=== PATIENT | female | born 2005 | race Caucasian/White ===

== ENCOUNTER 2025-03-12 16:05 | Emergency (ER) | payer OTHER, SELFPAY ==
--- OUTSIDE RECORDS SUMMARY | 2025-03-12 16:08 | XMS_ITS | Encounter Summary ---
Author Organization [facility] Address [facility] [place] [address] Care Team Providers Care Eviction Specialist Name Role Phone Dede Cedeno POKER SUPERVISOR Primary Care Provider [phone] Encounter Details Date Type Department Care Team (Late st Contact Info) Description 01/10/2025 Results Follow-Up [facility] [address] [facility] [address] [place] [phone] Dede Cedeno, EDNA [address] [place], [place] [id number] XR ANKLE LT M3V Social History Tobacco Use Types Packs/Day Years Used Date Smoking Tobacco: Never Smokeless Tobacco: Never Alcohol Use Standard Drinks/Week Comments Yes 0 (1 standard drink = 0.6 oz pur e alcohol) occ PHQ-2 Answer Date Recorded Patient Health Questionnaire-2 Score 0 08/26/2024 Comments No Sex and Gender Information Value Date Recorded Sex Assigned at Female 08/26/2024 11:46 AM CDT Legal Sex Female 6:02 PM CDT Gender Identity Female 08/26/2024 11:46 AM CDT Sexual Orientation Not on file documented as of this encounter Plan of Treatment Upcoming Encounters Date Type Department Care Team (Late st Contact Info) Description 03/15/2025 2:00 PM EDITOR SCHOOL PHOTOGRAPH Office Visit [facility] [place] [address] [facility] [address] [place] [address] Dede Cedeno NP [address] [place] [address] documented as of this encounter Visit Diagnoses Diagnosis Closed avulsion fracture of lateral malleolus of left fibula, initial encounter- Primary documented in this encounter Additional Health Concerns Assessment Noted Time PHQ-9 Depression Total Score: 18 024 3:56 PM EDITOR SCHOOL PHOTOGRAPH documented as of this encounter Care Teams Eviction Specialist Relationship Specialty Start Date End Date Dede Cedeno NP [address] [place] [address] PCP - General NURSE PRACTITIONER 03/25/23 documented as of this encounter
--- OUTSIDE RECORDS SUMMARY | 2025-03-12 16:08 | XMS_ITS | Clinical Summary ---
Author Organization [facility] Address [address] [place] [address] Care Team Providers Care Nuclear Reactor Operator Name Role Phone Dede Cedeno NP Primary Care Provider [phone] Allergies No known active allergies Medications Etonogestrel (NEXPLANON SC) Activ e WALKING BOOT, DME,Indications :Closed avulsion fracture of lateral malleolus of left fibula, initial encounter Apply 1 Device topically daily. Wear boot daily for 6 to 8 weeks 1 Device 5 Active FLUoxetine (PROZAC) 10 MG tabletIndicatio ns:Anxiety and depression Take 1 tablet (10 mg total) by mouth daily. 90 tablet 5 Active Active Problems Problem Noted Date Diagnosed Date Acute left ankle pain 01/10/2025 Severe anxiety 06/19/2022 Severe depression 06/19/2022 Active autistic disorder 12/24/2019 Uncomplicated asthma 12/24/2019 Hay fever 11/09/2009 Bronchial asthma 11/09/2009 Encounters Date Type Department Care Team Description 03/10/2025 MyChart Message Enc [facility] [address] [place], [place] [phone] [facility] Provider Appointment request 01/31/2025 MyChart Message Enc [facility] [address] [place] [address] Dede Cedeno NP Medicine 01/17/2025 10:00 AM CDT Office Visit [facility] [address] [address] Ofelia Bah, Ankle/foot Pain (Pt is here today for 1 week f/u for lt ankle pain. Still some pain with activity. Still driving with boot on.) 01/17/2025 Travel 01/11/[address] [place] [address] Dede Cedeno NP DME Orders (SCAN) 01/10/2025 12:38 PM CDT - 01/10/2025 11:59 PM CDT Hospital Encounter [facility] [id number] [place] [address] Dede Cedeno NP Discharge Disposition: Home or Self Care (Routine Discharge) 01/10/2025 11:20 AM CDT Office Visit [address] [place] [address] Dede Cedeno NP Ankle Pain (Patient presents with c/o left foot pain after fall yesterday) 01/10/2025 Scan [facility] Scanned, [facility] 01/10/2025 Results Follow-Up [address] [place] [address] Dede Cedeno NP XR ANKLE LT M3V 01/10/2025 Travel from Last 3 Months Immunizations Immunization Administration Dates Next Due IJdV-VyvM-HDB (Pediarix) 11/17/2006,2005,0 2005 Dtap (Acel-Immune) 10/15/2010,2005 HPV GARDASIL 9-VALENT 01/15/2023,01/04/2020 Hepatitis A (Havrix [address]) 01/15/2023,09/01/2 020 Hib (Generic) 11/17/2006,2005,2005 ,2005 Influenza (Generic) 03/23/2009,04/21/2007 MMR (MMRII) 10/15/2010,11/17/2006 Meningococcal (MenQuadfi) 01/15/2023 Meningococcal (Menactra) 12/30/2016 Pneumococcal (Prevnar 7) 11/17/2006,2005,0 2005 Polio IPV (Ipol) 10/15/2010,2005 Tdap (Generic) 12/30/2016 Varicella (Varivax) 01/16/2017,11/17/2006 Family History Medical History Relation Comments Diabetes Mother Relation Status Comments Father Alive Mother Alive Social History Tobacco Use Types Packs/Day Years Used Date Smoking Tobacco: Never Smokeless Tobacco: Never Tobacco Cessation:Counseling Given: Yes Alcohol Use Standard Drinks/Week Comments Not Currently 0 (1 standard drink = 0.6 oz pur e alcohol) occ PHQ-2 Answer Date Recorded Patient Health Questionnaire-2 Score 0 08/26/2024 Comments No Sex and Gender Information Value Date Recorded Sex Assigned at Female 08/26/2024 11:46 AM CDT Legal Sex Female 6:02 PM CDT Gender Identity Female 08/26/2024 11:46 AM CDT Sexual Orientation Not on file Last Filed Vital Signs Vital Sign Reading Time Taken Comments Blood Pressure 102/62 01/17/2025 10:14 AM CDT Pulse 95 01/17/2025 10:14 AM CDT Temperature 36.7 C (98.1 F) 01/17/2025 10:14 AM CDT Respiratory Rate 16 01/17/2025 10:1 4 AM CDT Oxygen Saturation 100% 01/17/2025 10: 14 AM CDT Inhaled Oxygen Concentration - - Weight 68.4 kg (150 lb 12.8 oz) 025 11:16 AM CDT Height 185.4 cm (6' 1) 01/17/2025 10:1 4 AM CDT Body Mass Index 19.9 01/10/2025 11:16 AM CDT Plan of Treatment Upcoming Encounters Date Type Department Care Team (Late st Contact Info) Description 03/15/2025 2:00 PM MDS NURSE Office Visit [facility] [place] [address] [facility] [address] [place] [address] Dede Cedeno, CHILD DEVELOPMENT ASSISTANT [address] [place] [address] Health Maintenance Due Date Last Done Comments Chlamydia Screening Females ages 16-24 2021 Meningococcal B Vaccine (1 of 2 - Standard) 2021 Pneumococcal Vaccine: Pediatrics (0 to 5 Years) and At-Risk Patients (6 to 49 Years) (1 of 2 - PCV) 2024 11/17/2006, 2005, 2005 Annual Physical 05/27/2024 05/27/2023 COVID-19 Vaccine (2 - 2024- season) 2025 05/09/2021 Influenza Adult (#1) 2025 03/23/2009, 04/21/20 07 DTaP, Tdap and Td Vaccines (7 - Td or Tdap) 12/30/2026 12/30/2016, 10/15/2010, 11/17/2006, Additional history exists Hepatitis B Vaccines Completed 11/17/2006, 2005, 2005 HPV Vaccines Completed 01/15/2023, 01/04/2020 Hepatitis A Vaccines Completed 01/15/2023, 01/04/20 20 Meningococcal Vaccine Completed 01/15/2023, 017 Hepatitis C Completed 08/29/2023 PHQ-2 (Physician [place]) Completed 08/26/2024 RSV Immunizations Under 20 Months Aged Out No longer eligible based on patient's age to complete this topic Procedures Procedure Name Priority Date/Time Associated Diagnosis Comments XR ANKLE LT M3V [place] 01/10/2025 1:07 PM CDT Acute left ankle pain HEPATITIS C ANTIBODY Routine 08/29/2023 12:04 PM CDT Need for hepatitis C screening test from Last 3 Months or Most Recently Relevant to Health Maintenance Results * XR ANKLE LT M3V (01/10/2025 1:07 PM CDT) Anatomical Region Laterality Modality Ankle Radiographic Mercedes ging 01/10/2025 1:45 PM CDT Impressions 01/10/2025 1:45 PM CDT IMPRESSION: Small avulsion fracture at the distal tip of the lateral malleolus. Associated soft tissue swelling. Referred By: Interpreted By: Jez Pike MD, 01/10/2025 1:45 PM Narrative 01/10/2025 1:45 PM CDT [facility] [address] [place] [address] EXAMINATION: Left ankle EXAM DATE: 01/10/2025 12:57 PM REASON FOR EXAM: left ankle pain, swelling, left ankle injury Ankle pain and swelling COMPARISON: 12/08/2017 TECHNIQUE: 3 views FINDINGS: Small avulsion fracture at the distal tip of the lateral malleolus. Associated soft tissue swelling. No osteochondral lesion of the talus. Procedure Note Jez Pike MD - 01/10/2025 [facility] [address] [address] EXAMINATION: Left ankle EXAM DATE: 01/10/2025 12:57 PM REASON FOR EXAM: left ankle pain, swelling, left ankle injury Ankle pain and swelling COMPARISON: 12/08/2017 TECHNIQUE: 3 views FINDINGS: Small avulsion fracture at the distal tip of the lateral malleolus.Associated soft tissue swelling. No osteochondral lesion of the talus. IMPRESSION: Small avulsion fracture at the distal tip of the lateral malleolus.Associated soft tissue swelling. Referred By: Interpreted By: Jez Pike MD, 01/10/2025 1:45 PM us Dede Cedeno NP GENERAL IMAGING Final Res ult * HEPATITIS C ANTIBODY (08/29/2023 12:04 PM CDT) HEPATITIS C AB NON-REACTI VE NON-REACTI VE 08/29/2023 3:20 PM CDT [facility] 08/29/2023 12:0 4 PM CDT Dede Cedeno CHILD DEVELOPMENT ASSISTANT LABORATORY Final Res ult [facility] [address] [place] [address], from Last 3 Months or Most Recently Relevant to Health Maintenance Insurance [employer] Care Teams Nuclear Reactor Operator Relationship Specialty Start Date End Date Dede Cedeno NP [address] [facility] [address] [place] [address] PCP - General NURSE PRACTITIONER 03/25/23
--- OUTSIDE RECORDS SUMMARY | 2025-03-12 16:08 | XMS_ITS | Encounter Summary ---
Author Organization [facility] Address [facility] [place] [address] Care Team Providers Care Technical Agronomist Name Role Phone Dede Cedeno NP Primary Care Provider [phone] Encounter Details Date Type Department Care Team (Late Contact Info) Description 03/10/2025 908 Devices Message Enc [facility] [address] [facility] [address] [place], [place] [phone] [facility] Provider Appointment request Social History Tobacco Use Types Packs/Day Years Used Date Smoking Tobacco: Never Smokeless Tobacco: Never Alcohol Use Standard Drinks/Week Comments Not Currently [...] Encounters Date Type Department Care Team (Late Contact Info) Description 03/15/2025 2:00 PM GROMMET MAN Office Visit [facility] [address] [facility] [address] [place], [place] [phone] Dede Cedeno NP [address] [place] [address] documented as of this encounter Visit Diagnoses Not on filedocumented in this encounter Additional Health Concerns Assessment Noted Time PHQ-9 Depression Total Score: 18 024 3:56 PM GROMMET MAN documented as of this encounter Care Teams Technical Agronomist Relationship Specialty Start Date End Date Dede Cedeno NP [address] [place] [address] PCP - General NURSE PRACTITIONER 03/25/23 documented as of this encounter
--- OUTSIDE RECORDS SUMMARY | 2025-03-12 16:08 | XMS_ITS | Data Portability ---
Author Organization [id number] [facility] Address [address] [place] [address] Assessment No assessment recorded. Plan of Treatment Reminders Order Date Submit Date Provider Last Modified By Organization Details Last Modified Time Details Appointments ANNUAL - EST 15 026 01:15PM REGGIE CERRATONP Not available Not available Not available Lab None record ed. Referral None record ed. Procedures None record ed. Surgeries None record ed. Imaging None record ed. Medication Orders None record ed. Patient TargetsNo targets recorded. Patient Instructions Encounter Date Encounter Id Patient Instructions Last Modified By Organization Details Last Modified Time 11/29/2024 [id number] - Continue using Nexplanon as prescribed. - Schedule the next annual wellness visit in one year. [email or web address] Not available 11/29/2024 13:57:09 During the visit , we discussed the patient's use of Nexplanon and the associated irregular menstruation. I reassured her that this is a common side effect and does not require intervention unless it becomes bothersome. We also confirmed that no new health concerns were present, and I advised her to continue with routine annual wellness visits. The patient is advised to return for her next annual wellness visit in one year unless new symptoms or concerns arise. [email or web address] Not available 11/29/2024 13:57:09 Reason for Referral None Reported. Problems Name Problem SNOMED Code Status Onset Date Resolution Date Notes Provider Name and Address Organization Details Recorded Time History taking Active Other, aspergers Not Available [facility] 13:10:17 Problem Notes None recorded. Procedures Surgical History Date Name Laterality Status Provider Name and Address Organization Details Recorded Time Insert contraceptive cap completed Not Available [facility] 16:34:43 Imaging Results None recorded. Procedure Notes None recorded. Medical Equipment None Reported. Allergies No known drug allergies Medications Name Sig Start Date Stop Date Status Note LastModified by Organization Details LastModified Time azithromyci n 250 mg tablet TAKE 2 TABLETS BY MOUTH TODAY, THEN TAKE 1 TABLET DAILY FOR 4 DAYS DIRECTED 11/24 completed Not Available Not Available Not Available amoxicillin 875 mg-potassiu m clavulanate 125 mg tablet TAKE 1 TABLET BY MOUTH TWICE A DAY FOR 10 DAYS 11/24 completed Not Available Not Available Not Available levalbutero l HFA 45 mcg/actuati on aerosol inhaler INHALE 1 PUFF INTO THE LUNGS EVERY 4 HOURS NEEDED FOR WHEEZING OR SHORTNESS OF BREATH. 11/29 completed Not Available Not Available Not Available Nexplanon 68 mg subdermal implant Inject by subcutane ous route. 2023 active Not Available Not Available Not Avai lable Vitals Date Recorded Body height Body mass index (BMI) Body mass index (BMI) [Percentile] Per age and sex Body weight Systolic And Diastolic Provider Name and Address Organization Details Last Updated DateTime 11/29/2024 187.325 cm 19.1 kg/m2 17 % 51560.6 7 g 104/58 mm[Hg] Maycol Lorenzana [facility] 13:46:02 Social History Question Answer Notes LastModified by Sodraft Details LastModified Time Tobacco Smoking Status Never Smoker Screenin01/30/2021 Not Available [facility] 09/02/2024 17:39:33 Do You Have An Advance Directive? No Information not available 11/29/2024 If You Are , What Was Your Level Of Alcohol Consumption Prior To ? None Information not available 11/29/2024 What Is Your Level Of Caffeine Consumption? Occasional Information not available 11/29/2024 What Type Of Diet Are You Following? REGULAR Information not available 11/29/2024 What Is Your Relationship Status? Other Note: Single Information not available 09/02/2024 Sex: Female Functional Status Question Answer Note LastModified by Sodraft Details LastModified Time Do you use any illicit or recreational drugs? No Information not available 09/02/2024 What is your level of alcohol consumption? None Note: Use status used: Never Information not available 09/02/2024 Are you currently employed? Yes Information not available 11/29/2024 What is your exercise level? None Note: - [employer]rees[employer] 01/30/2021 Information not available 09/02/2024 Mental Status None recorded. Family History Relationship Description Onset Age of this Age Resolved Age Notes LastModified by Organization Details LastModified Time Brother Asthma Asthma Not available 09/02/2024 18:24:01 Mother Asthma Asthma [email or web address] Not available 0 09/02/2024 18:24:01 Mother Depressive disorder Depres karina Not available 09/02/2024 18:24:01 Father Depressive disorder Depres karina Not available 09/02/2024 18:24:01 Medical History Condition Response Cancer- Genetic screening Gynecological History Statement/Question Response History of PCOS N History of Fibroids N Date of LMP 11/09/2024 History of Infertility N History of Cervical Dysplasia N History of Vulvar Dysplasia N Duration of Flow (days) 0 Age at Menarche 14 Current Control Method History of Recurrent Ovarian Cysts N Age at first intercourse 14 History of Endometriosis N Sexually Active? Y History of Dysmenorrhea N Menses Monthly N Sexual Problems? N History of Sexually Transmitted Infectio n N Obstetrics History GPAL:G 0 P 0 0 0 0 Type Value Multiple Births 0 Full Term 0 Induced 0 Spontaneous 0 Premature 0 Living 0 Ectopics 0 Total 0 Immunizations Vaccine Type Date Status Note Provider Nam e and Address Organization Details Recorded Time Hib, unspecified formulation 6 completed Not Available [facility] 11/29/2024 13:37:25 IPV 6 completed Not Available [facility] 11/29/2024 13:37:25 DTaP 6 completed Not Available [facility] 11/29/2024 13:37:25 Hib, unspecified formulation 6 completed Not Available [facility] 11/29/2024 13:37:25 DTaP-Hep B-IPV 6 completed [facility] 11/29/2024 13:37:25 pneumococcal conjugate PCV 7 6 completed Not Available [facility] 11/29/2024 13:37:25 DTaP-Hep B-IPV 6 completed Not Available [facility] 11/29/2024 13:37:25 Hib, unspecified formulation 6 completed Not Available [facility] 11/29/2024 13:37:25 pneumococcal conjugate PCV 7 6 completed Not Available [facility] 11/29/2024 13:37:25 DTaP-Hep B-IPV 7 completed Not Available [facility] 11/29/2024 13:37:25 Hib, unspecified formulation 7 completed Not Available [facility] 11/29/2024 13:37:25 varicella 7 completed Not Available [facility] 11/29/2024 13:37:25 pneumococcal conjugate PCV 7 7 completed Not Available [facility] 11/29/2024 13:37:25 MMR 7 completed Not Available [facility] 11/29/2024 13:37:25 influenza, unspecified formulation 7 completed Not Available [facility] 11/29/2024 13:37:25 influenza, split (incl. purified surface antigen) 9 completed Not Available [facility] 11/29/2024 13:37:25 IPV 1 completed Not Available [facility] 11/29/2024 13:37:25 DTaP 1 completed Not Available [facility] 11/29/2024 13:37:25 MMR 1 completed Not Available [facility] 11/29/2024 13:37:25 meningococcal MCV4P 7 completed Not Available [facility] 11/29/2024 13:37:25 Tdap 7 completed Not Available [facility] 11/29/2024 13:37:25 varicella 7 completed Not Available [facility] 11/29/2024 13:37:25 Hep A, ped/adol, 2 dose 0 completed Not Available [facility] 11/29/2024 13:37:25 HPV9 0 completed Not Available [facility] 11/29/2024 13:37:25 COVID-19, mRNA, LNP-S, PF, 30 mcg/0.3 mL dose 2 completed Not Available [facility] 11/29/2024 13:37:25 Hep A, ped/adol, 2 dose 3 completed Not Available [facility] 11/29/2024 13:37:25 meningococcal conjugate quadrivalent, MenACWY-TT (MCV4) 3 completed Not Available [facility] 11/29/2024 13:37:25 HPV9 3 completed Not Available [facility] 11/29/2024 13:37:25 Past Encounters Encounter ID Performer Location Encounter Start Date Encounter Closed Date Diagnosis/Indication Diagnosis SNOMED-CT Code Diagnosis ICD10 Code Diagnosis IMO Codes Diagnosis Note [id number], [place] [id number] [facility] [address] [facility] [place] [address] 11/29/2024 13:10:39 11/29/2024 13:58:38 Well woman health examination 216778237 Z01.419 [id number] Subcutaneo us contraceptive implant present 420853756 Z97.5 [id number] Health Concerns Section Related Observation LastModified by Organization Detai ls LastModified Time None Recorded Concern Status LastModified by Organization Details LastModified Time None Recorded Advance Directives Directive N: Payers Insurance Date Sequence Insurance Name Policy Number Policy Zarco Covered Member ID Zarco Member ID Guarantor Name 11/27/2024 1 [facility] Howie Del Angel [id number] Howie Del Angel Notes Date Note Type Note Provider Name and Address Organization Details Recorded Time 11/29/2024 text/html doing okay no concerns mw- The patient is a 19-year-old female presenting with an annual wellness examination. - The patient has been using Nexplanon for contraception, which was changed last year. - She reports irregular menstruation, with periods that come and go without a regular pattern. - No gynecologic problems such as abnormal discharge, irritation, or pain during intercourse were reported. - The patient does not perform breast self-examinations and has not noticed any abnormalities. MEDICATIONS: - Nexplanon for contraception REGGIE BRAND [address] [facility] [address], [place], [address], [place] - [facility] 11/29/2024 14:06:57 OBGyn Episode No OBEpisode recorded.
--- OUTSIDE RECORDS SUMMARY | 2025-03-12 16:08 | XMS_ITS | Clinical Summary ---
Author Organization [facility] Address [address] [place] [address] Care Team Providers Care Grain Buyer Name Role Phone Denise Boogie MD Primary Care Provider Source Comments [facility],non-owned Affiliates and Associated Physician Practices is amultiple site organization consisting of ambulatory clinics and hospital sitesin [place], [place], [place]. This disclosure is being madepursuant to the Care Everywhere program and may not contain all information available regarding this patient. Last updated 18.[facility] [email or web address] Allergies No known active allergies Medications * Be aware that medications may not be up to date on this document. Alwaysverify current medications with the patient. mupirocin (BACTROBAN) 2 % ointment Apply 1 squirt to affected area 2 times daily 1 12/20/2017 Active Active Problems No known active problems Social History Tobacco Use Types Packs/Day Years Used Date Smoking Tobacco: Never Assessed Comments Unknown Sex and Gender Information Value Date Recorded Sex Assigned at Not on file Legal Sex Female 6:53 AM HOSPICE CLINICAL SUPERVISOR Gender Identity Not on file Sexual Orientation Not on file Last Filed Vital Signs Vital Sign Reading Time Taken Comments Blood Pressure 106/58 12/26/2011 11:27 PM CDT Pulse 108 12/26/2011 11:27 PM CDT Temperature 36 C (96.8 F) 12/26/2011 11:27 PM CDT Respiratory Rate 24 12/27/2011 1:54 AM CDT Oxygen Saturation - - Inhaled Oxygen Concentration - - Weight 56.8 kg (125 lb 3.5 oz) 04/23/2018 3:36 P M HOSPICE CLINICAL SUPERVISOR Height 175.5 cm (5' 9.09) 04/23/2018 3:36 PM CS T Body Mass Index 18.44 04/23/2018 3:36 PM HOSPICE CLINICAL SUPERVISOR Body Mass Index Percentile 45.81% 04/23/2018 3:3 6 PM HOSPICE CLINICAL SUPERVISOR Growth Chart: [facility] [place]Girls, 2- 20 Years) Plan of Treatment Health Maintenance Due Date Last Done Comments HIV SCREENING 2020 HPV VACCINE (1 - 3-dose series) 2020 CHLAMYDIA/GONORRHEA SCREENING 2021 MENINGOCOCCAL (Group B) VACC INE SHARED DECISION-MAKING (1 of 2 - Standard) 2021 HEPATITIS C SCREENING 04/07/2023 DTAP/TDAP/TD VACCINES (1 - Tdap) 2024 HEPATITIS B VACCINE (1 of 3 - 19+ 3-dose series) 2024 DEPRESSION SCREENING 05/05/2024 COVID-19 VACCINE (1 - 2023-2 5 season) 2025 INFLUENZA VACCINE (#1) 2025 ZOSTER VACCINE (1 of 2) 2055 HIB VACCINE Aged Out No longer eligi ble based on patient's age to complete this topic MENINGOCOCCAL GROUPS A/C/Y/W VACCINE Aged Out No longer eligible b ased on patient's age to complete this topic PNEUMOCOCCAL VACCINE Aged Out No long er eligible based on patient's age to complete this topic Insurance [facility] MEDICAID - OUT OF STATE Member Subscriber Plan / Payer (Ef fective for All Dates) Name:Stone Del Angel Relation to Subscriber:Self Name:STONE DEL ANGEL Payer ID:Not on file Group ID:Not on file Type:Medicaid Address: [place] [id number] Care Teams Grain Buyer Relationship Specialty Start Date End Date Denise Boogie MD [address] [place] [id number] PCP - General Pediatrics 04/23/18
[2025-03-12 16:21] VITALS: BP 129/70; PULSE 94; RESP 16; TEMP 36.6; O2SAT 100
--- NOTE | 2025-03-12 16:45 | ED.SKABFB ---
HPI - Skin/Abscess/Foreign Bdy General Chief complaint: Skin/Abscess/Foreign Body Stated complaint: Vaginal Time Seen by Provider: 03/12/25 16:28 Source: patient and RN notes reviewed Mode of arrival: ambulatory Limitations: no limitations History of Present Illness HPI narrative: 19-year-old female patient presents today complaining of swelling to the right labia 6 days ago with pain starting with walking 3 days ago. She noted some bleeding, possibly from the area a few days ago, but was also not sure if this was her starting her menstrual cycle as they are regular. No OTC treatment prior to arrival. Related Data Home Medications ?Medication ?Instructions ?Recorded ?Confirmed ?Last Taken ?Type etonogestrel 68 mg subdermal 1 implant subdermal ONCE 03/12/25 03/12/25 Unknown History implant (Nexplanon) fluoxetine 10 mg tablet mg 03/12/25 Unknown History Allergies Allergy/AdvReac Type Severity Reaction Status Date / Time No Known Allergies Allergy Mild Verified 03/12/25 16:20 [facility] Past Medical History Medical History (Updated 03/12/25 @ 16:46 by Starla Bennett, CARTON LINER, DRESS DRAPER) Autism Comments At time of signature, I have reviewed and agree with nursing past medical, surgical, social and family history unless otherwise noted. Please see nursing chart for further information. There is no relevant family history pertinent to the presenting complaint Exam Narrative: GENERAL: Well-appearing, well-nourished, and in no acute distress. HEAD: Normocephalic, atraumatic. EYES: EOMI. No redness or drainage. Conjunctivae normal. ENT: Mucous membranes pink and moist. NECK: Normal AROM. CHEST: No respiratory distress. :Moderate swelling and erythema of the lower portion of the right labia minora. On the medial aspect, there is small opening draining bloody discharge. TTP. No fluctuance noted. EXTREMITIES: Normal range of motion. No edema. SKIN: Warm, dry, no rash. Capillary refill normal. Normal skin turgor. NEURO: No focal deficits. Alert and oriented x3. Gait steady. PSYCH: Normal affect. No signs of depression or anxiety. Course Course Level of Care: Express Care Visit Vital Signs Vital signs: Vital Signs Temperature 97.8 F 03/12/25 16:21 Pulse Rate 94 03/12/25 16:21 Respiratory Rate 16 03/12/25 16:21 Blood Pressure 129/70 03/12/25 16:21 Pulse Oximetry 100 03/12/25 16:21 Oxygen Delivery Room Air 03/12/25 16:21 Temperature 97.8 F 03/12/25 16:21 Pulse Rate 94 03/12/25 16:21 Respiratory Rate 16 03/12/25 16:21 Blood Pressure 129/70 03/12/25 16:21 Pulse Oximetry 100 03/12/25 16:21 Oxygen Delivery Room Air 03/12/25 16:21 Reviewed MDM - Skin/Abscess/Foreign Bdy MDM Narrative Medical decision making narrative: 19-year-old female patient presents today complaining of swelling to the right labia 6 days ago with pain starting with walking 3 days ago. She noted some bleeding, possibly from the area a few days ago, but was also not sure if this was her starting her menstrual cycle as they are regular. No OTC treatment prior to arrival. Upon exam, Moderate swelling and erythema of the lower portion of the right labia minora. On the medial aspect, there is small opening draining bloody discharge. TTP. No fluctuance noted. Patient will be placed on bactrim for bartholin abscess/labial cellulitis. Did not chrissy due to already draining. Recommend frequent warm compresses to facilitate drainage. Also recommend close ENGINEERING TECHNICAL SPECIALIST follow up. Patient agrees with plan. Vital signs stable. Anticipatory guidance given. Differential Diagnosis Differential diagnosis: Likely abscess of skin or subcutaneous tissue and cellulitis Critical Care Time Critical Care Time Critical Care Time: No Discharge Plan Discharge Clinical Impression: Abscess of Bartholin gland Patient Disposition: Home Condition: Stable Instructions: Antibiotic Form, Bartholin Cyst (ED) Additional Instructions: Please take the Bactrim as prescribed until gone. Frequently apply warm compresses to the area to facilitate drainage. Call and schedule a follow-up visit with your OBGYN. Patient Language: Albanian Prescriptions: New sulfamethoxazole-trimethoprim [Bactrim DS] 800-160 mg tablet 1 tablet PO Q12H 7 Days Qty: 14 0RF No Action fluoxetine 10 mg tablet Nexplanon 68 mg implant 1 implant subdermal ONCE Rx Instructions: as a single dose Follow-up/Referrals: Pao,ROSANNE Souza [Primary Care Provider, Unknown] Time of Disposition: 16:43
== END 2025-03-12 16:46 | disposition home or self-care (01) ==
PROVIDERS: Emergency Provider Nurse Practitioner; PCP Nurse Practitioner
DX: N75.1 Abscess of Bartholin's gland (principal); F84.0 Autistic disorder
CPT/HCPCS: 99213; G0463